=== PATIENT | male | born 1985 | race Caucasian/White ===

== ENCOUNTER 2022-06-03 09:09 | Inpatient (IN) | payer OTHER ==
[~2022-06-03] VITALS: Ht 182.9 cm; Wt 88.5 kg
[2022-06-03] MEDS ORDERED: OXYCODONE HCL/ACETAMINOPHEN 5/325MG TABLET PO ONE (09:30)
[2022-06-03 12:25] LABS: EOSINOPHILS % 3.3 % (0.0-5.0); HEMATOCRIT. 45.9 % (42.0-52.0); HEMOGLOBIN. 15.6 g/dL (14.0-18.0); LYMPHOCYTES % 57.9 % (20.0-50.0); MEAN CORPUSCULAR HEMOGLOBIN 33.7 pg (28.0-32.0); MEAN CORPUSCULAR VOLUME 98.9 fL (80.0-94.0); MEAN PLATELET VOLUME 7.9 fl (7.4-10.4); NEUTROPHILS % 29.8 % (40.0-76.0); PLATELET 396 x1000/uL (130-400); RED BLOOD CELL COUNT 4.64 mill/uL (4.7-6.1); RED CELL DISTRIBUTION WIDTH 12.9 % (11.6-14.6)
[2022-06-03 12:55] LABS: CHLORIDE 103 mEq/L (98-107)
[2022-06-03] MEDS ORDERED: DOCUSATE SODIUM 100MG CAPSULE PO PRN (15:00)
[2022-06-03] MEDS ORDERED: MAGNESIUM/ALUMINUM HYDROXIDE/SIMETHICONE 30ML UDC PO PRN (15:00)
[2022-06-03] MEDS ORDERED: MORPHINE SULFATE 2 MG/ML CPJ (NOT FOR IM USE) IV PRN (15:00)
[2022-06-03] MEDS ORDERED: ONDANSETRON HCL 4MG/2ML INJ IV PRN (15:00)
[2022-06-03] MEDS ORDERED: ACETAMINOPHEN 325MG TABLET PO PRN (15:00)
[2022-06-03] MEDS ORDERED: ENOXAPARIN 40MG/0.4ML SYR SUBCUT SCH (15:00)
[2022-06-03] MEDS ORDERED: NALOXONE HCL 0.4MG/ML VIAL IV PRN (15:00)
[2022-06-03] MEDS ORDERED: HYDROCODONE/ACETAMINOPHEN 5/325MG TABLET PO PRN (15:00)
[2022-06-03] MEDS ORDERED: SODIUM CHLORIDE 0.9% 1,000 ML IV SCH (15:00)
[2022-06-03 20:00] VITALS: BP 141/96
[2022-06-03 20:30] VITALS: BP 141/96
[2022-06-03 20:44] LABS: HEPATITIS B SURFACE ANTIGEN NEGATIVE
[2022-06-03] MEDS ORDERED: FAMOTIDINE 20MG TABLET PO SCH (21:00)
[2022-06-03] MEDS: GABAPENTIN 100MG CAPSULE PO SCH (23:00)
[2022-06-03] MEDS: DEXAMETHASONE 4MG/ML 1ML VIAL IV SCH (23:15)
[2022-06-04] VITALS: BP 112/75
[2022-06-04 04:00] VITALS: BP 123/69
[2022-06-04] MEDS: DEXAMETHASONE 4MG/ML 1ML VIAL IV SCH ×2 (05:33→13:25)
[2022-06-04] MEDS: GABAPENTIN 100MG CAPSULE PO SCH ×2 (05:33→13:25)
[2022-06-04 06:57] LABS: BASOPHILS % 0.7 % (0.0-2.0); EOSINOPHILS % 0.1 % (0.0-5.0); HEMATOCRIT. 46.3 % (42.0-52.0); HEMOGLOBIN. 15.7 g/dL (14.0-18.0); LYMPHOCYTES % 28.3 % (20.0-50.0); MEAN CORPUSCULAR HEMOGLOBIN 33.3 pg (28.0-32.0); MEAN CORPUSCULAR VOLUME 98.1 fL (80.0-94.0); MEAN PLATELET VOLUME 8.1 fl (7.4-10.4); MONOCYTES % 1.7 % (2.0-8.0); NEUTROPHILS % 69.2 % (40.0-76.0); PLATELET 395 x1000/uL (130-400); RED BLOOD CELL COUNT 4.72 mill/uL (4.7-6.1); RED CELL DISTRIBUTION WIDTH 13.2 % (11.6-14.6)
[2022-06-04 07:11] LABS: CHLORIDE 103 mEq/L (98-107)
[2022-06-04 07:20] LABS: PHOSPHORUS 1.6 mg/dL (2.5-4.9)
[2022-06-04 08:00] VITALS: BP 119/68
[2022-06-04] MEDS ORDERED: THIAMINE HCL 100MG TABLET PO SCH (09:00)
[2022-06-04] MEDS ORDERED: DEXA0.5T MT (11:40)
[2022-06-04 12:00] VITALS: BP 120/55
[2022-06-04] MEDS ORDERED: POTASSIUM PHOS,M-BASIC-D-BASIC 20 MMOL in DEXT 5% WATER 243.3333 ML IV NR (13:00)
[2022-06-04 13:43] VITALS: BP 120/55
== END 2022-06-04 15:17 | disposition home or self-care (01) | DRG 552 ==
LOC: ER 09:09 → UNDOADMIN 12:51 → MICUSO 12:51 → EDBEDREQ 13:08 → EDBEDREQSVC 13:08 → EDBEDREQTM 13:08 → 6EST 22:14
PROVIDERS: ADMIT Internal Medicine Nephrology; ATTEND Internal Medicine Nephrology
DX: M51.17 Intervertebral disc disorders with radiculopathy, lumbosacral region (principal); M48.061 Spinal stenosis, lumbar region without neurogenic claudication; R74.01 Elevation of levels of liver transaminase levels; Z90.81 Acquired absence of spleen; Z82.49 Family history of ischemic heart disease and other diseases of the circulatory system
CPT/HCPCS: 36415; 72100; 72131; 72148; 73502; 80048; 80053; 83735; 84100; 85025; 86705; 86709; 86803; 87340; 97162; 97166; 99285; J1100; J1650; J3490; J7030; J7060